=== PATIENT | female | born 1965 ===

== ENCOUNTER 2016-09-08 11:29 | Emergency (ER) | payer MEDICAID ==
[2016-09-08 11:30] VITALS: BMI 41.1
[2016-09-08 12:06] VITALS: RESP 18; TEMP 98.2; O2SAT 98
--- NOTE | 2016-09-08 12:43 | ED PDOC ---
Arrival/HPI - General Chief Complaint: Lower Extremity Problem/Injury Time Seen by Provider: 09/08/16 12:18 Historian: Patient - History of Present Illness Narrative History of Present Illness (Text): 09/08/16 12:32 51yo female with PMhx of hypertension and RA present with complaint of sharp right knee pain x 3days. Reports previous history of joint pain secondary to RA. States she took 2tabs of Ibuprofen 600mg without relieve. Pain radiates to her lower leg. Denies trauma, fall, redness, swelling, any other complaint. Past Medical History - Provider Review Nursing Documentation Reviewed: Yes - Infectious Disease Hx of Infectious Diseases: None - Tetanus Immunization Tetanus Immunization: Unknown - Cardiac Hx Hypertension: Yes - Hematological/Oncological Hx Blood Disorders: No - Musculoskeletal/Rheumatological Hx Rheumatoid Arthritis: Yes - Psychiatric Hx Anxiety: Yes Hx Substance Use: No Other/Comment: under a lot of stress - Surgical History Hx Section: Yes Hx Orthopedic Surgery: Yes (fx tibia) - Anesthesia Hx Anesthesia: Yes Family/Social History - Physician Review Nursing Documentation Reviewed: Yes Family/Social History: Unknown Family HX Smoking Status: Current Some Days Smoker Hx Alcohol Use: No Hx Substance Use: No Allergies/Home Meds Allergies/Adverse Reactions: Allergies No Known Allergies Allergy (Verified 09/08/16 12:07) Home Medications: Home Meds Medication Instructions Recorded Confirmed Lisinopril [Zestril] 10 mg PO DAILY 02/19/15 05/19/16 Aspirin [Adult Low Dose Aspirin EC] 09/08/16 Review of Systems - Physician Review All systems were reviewed & negative as marked: Yes - Review of Systems Constitutional: Normal Eyes: Normal ENT: Normal Respiratory: Normal Cardiovascular: Normal Gastrointestinal: Normal Genitourinary Female: Normal Musculoskeletal: Arthralgias (Right knee) Skin: Normal Neurological: Normal Endocrine: Normal Hemo/Lymphatic: Normal Psychiatric: Normal Physical Exam Vital Signs Reviewed: Yes Vital Signs Temp Pulse Resp BP Pulse Ox 09/08/16 12:02 98.2 F 77 18 144/84 98 Temperature: Afebrile Blood Pressure: Normal Pulse: Regular Respiratory Rate: Normal Appearance: Positive for: Well-Appearing, Non-Toxic, Comfortable Pain Distress: None Mental Status: Positive for: Alert and Oriented X 3 - Systems Exam Head: Present: Atraumatic, Normocephalic Pupils: Present: PERRL Extroacular Muscles: Present: EOMI Conjunctiva: Present: Normal Mouth: Present: Moist Mucous Membranes Neck: Present: Normal Range of Motion Respiratory/Chest: Present: Clear to Auscultation, Good Air Exchange. No: Respiratory Distress, Accessory Muscle Use Cardiovascular: Present: Regular Rate and Rhythm, Normal S1, S2. No: Murmurs Abdomen: Present: Normal Bowel Sounds. No: Tenderness, Distention, Peritoneal Signs Back: Present: Normal Inspection Upper Extremity: Present: Normal ROM, NORMAL PULSES, Tenderness (Diffuse right knee worse medially), Neurovascularly Intact, Capillary Refill < 2s. No: Cyanosis, Edema, Swelling, Erythema, Temperature Abnormalties, Deformity Lower Extremity: Present: Normal Inspection. No: Edema Neurological: Present: GCS=15, CN II-XII Intact, Speech Normal Skin: Present: Warm, Dry, Normal Color. No: Rashes Psychiatric: Present: Alert, Oriented x 3, Normal Insight, Normal Concentration Medical Decision Making ED Course and Treatment: 09/08/16 13:13 Per US tech - Doppler was negative for DVT Right knee xray - DJD. No acute finding Result was DW the pt. She was ambulatory. DC home with a rx of Tramadol. Referred to ortho. TRT ED for any new or worsening symptoms - RAD Interpretation Radiology Orders: 09/08/16 12:19 KNEE W PATELLA RIGHT 3 VIEW [RAD] Stat DUPLEX LOWER EXTRM VEIN RIGHT [US] Stat - Medication Orders Current Medication Orders: Discontinued Medications Ketorolac Tromethamine (Toradol) 60 mg IM STAT STA Stop: 09/08/16 12:21 Last Admin: 09/08/16 13:19 Dose: 60 MG IM Administration Charges Document 09/08/16 13:19 EAR (Rec: 09/08/16 13:19 EAR [id number]) Injection Site MAR Injection Site Left Deltoid Charges for Administration # of IM Administrations 1 Disposition/Present on Arrival - Present on Arrival Any Indicators Present on Arrival: No History of DVT/PE: No History of Uncontrolled Diabetes: No Urinary Catheter: No History of Decub. Ulcer: No History Surgical Site Infection Following: None - Disposition Have Diagnosis and Disposition been Completed?: Yes Diagnosis: Knee pain Disposition: HOME/ ROUTINE Disposition Time: 13:15 Patient Plan: Discharge Patient Problems: Current Active Problems Problem Status Diagnosed Knee pain Acute Condition: STABLE Discharge Instructions (ExitCare): Knee Pain (ED) Additional Instructions: Follow up with orthopedics Return to ED for any new or worsening symptoms Prescriptions: traMADol [Ultram] 50 mg PO TID #20 tab Referrals: Dre Shepard III, MD [Medical Doctor] - Follow up with primary
--- NOTE | 2016-09-08 13:03 | RAD ---
PROCEDURE: Right Knee Radiographs. HISTORY: knee pain COMPARISON: None. FINDINGS: BONES: Normal. No fracture. JOINTS: Normal. No osteoarthritis. JOINT EFFUSION: None. OTHER FINDINGS: The patella is normal IMPRESSION: Normal radiographs of the right knee.
[2016-09-08 13:41] VITALS: BP 128/79; PULSE 78
--- NOTE | 2016-09-08 15:22 | US ---
PROCEDURE: Right lower extremity venous US HISTORY: Leg pain and swelling. Evaluate for DVT. PHYSICIAN(S): Eulalio Castaneda M.D. TECHNIQUE: Duplex sonography and color-flow Doppler with graded compression were used to evaluate the deep venous system of the right lower extremity. FINDINGS: The visualized deep venous system of the right lower extremity is sonographically normal and compressible. Normal waveforms and augmentation are seen. There is no sonographic evidence for deep venous thrombosis in the visualized segments of the right lower extremity. IMPRESSION: 1. No sonographic evidence for deep venous thrombosis in the visualized segments of the right lower extremity.
== END 2016-09-08 13:42 | disposition home or self-care (01) ==
LOC: ED 11:29
DX: M25.561 Pain in right knee (principal); I10 Essential (primary) hypertension; Z72.0 Tobacco use
CPT/HCPCS: 73562; 93971; 96372; 99283; J1885

== ENCOUNTER 2017-05-13 22:26 | Emergency (ER) | payer MEDICAID ==
[2017-05-13 22:40] VITALS: BMI 36.6
[2017-05-13 22:43] VITALS: O2SAT 98
--- NOTE | 2017-05-13 23:24 | ED PDOC ---
Arrival/HPI - General Chief Complaint: Pain, Chronic Time Seen by Provider: 05/13/17 23:06 Historian: Patient - History of Present Illness Narrative History of Present Illness (Text): 05/13/17 23:20 A 51 year old female whose past medical history includes hypertension and RA, presents to the emergency department with a complaint of 2 day duration left arm pain. She states that today the pain started in the left upper arm and radiated down toward the forearm. She notes that she took Tylenol and Ibuprofen with no relief of her symptoms. The patient also notes that this evening her left eye became itchy and swollen. The patient also noted that this evening her left leg became slightly more swollen than her right leg. The patient denies fevers, chills, headache, dizziness, chest pain, shortness of breath, dyspnea on exertion, cough, abdominal pain, nausea, vomiting, diarrhea, back pain, neck pain, urinary/bowel changes, or any other complaint. PMD: Dr. Spann Time/Duration: Other (2 Days) Symptom Onset: Sudden Symptom Course: Unchanged Activities at Onset: Rest, Light Context: Home Past Medical History - Provider Review Nursing Documentation Reviewed: Yes - Infectious Disease Hx of Infectious Diseases: None - Tetanus Immunization Tetanus Immunization: Unknown - Cardiac Hx Hypertension: Yes - Hematological/Oncological Hx Blood Disorders: No - Musculoskeletal/Rheumatological Hx Rheumatoid Arthritis: Yes - Psychiatric Hx Anxiety: Yes Hx Substance Use: No Other/Comment: under a lot of stress - Surgical History Hx Section: Yes Hx Orthopedic Surgery: Yes (fx tibia) - Anesthesia Hx Anesthesia: Yes Family/Social History - Physician Review Nursing Documentation Reviewed: Yes Family/Social History: Other (Non- contributory.) Smoking Status: Current Some Days Smoker Hx Alcohol Use: No Hx Substance Use: No Allergies/Home Meds Allergies/Adverse Reactions: Allergies aspirin Allergy (Verified 05/13/17 23:21) Home Medications: Home Meds Medication Instructions Recorded Confirmed Lisinopril [Zestril] 10 mg PO DAILY 02/19/15 05/19/16 Aspirin [Adult Low Dose Aspirin EC] 09/08/16 Review of Systems - Review of Systems Constitutional: absent: Fevers Eyes: Other (left eye itchiness and swelling.) Respiratory: absent: SOB Cardiovascular: absent: Chest Pain Gastrointestinal: absent: Abdominal Pain, Diarrhea, Nausea, Vomiting Musculoskeletal: Other (Left arm pain and left leg swelling.) Neurological: absent: Headache Physical Exam Vital Signs Reviewed: Yes Vital Signs Temp Pulse Resp BP Pulse Ox 05/14/17 01:15 97.9 F 62 17 135/82 98 05/13/17 22:42 97.8 F 65 20 151/84 H 98 Appearance: Positive for: Well-Appearing, Non-Toxic, Comfortable Pain Distress: None Mental Status: Positive for: Alert and Oriented X 3 - Systems Exam Extroacular Muscles: Present: EOMI Conjunctiva: Present: Other (Mild edema on the left eyelid.) Mouth: Present: Moist Mucous Membranes Respiratory/Chest: Present: Clear to Auscultation, Good Air Exchange, Accessory Muscle Use. No: Respiratory Distress Cardiovascular: Present: Regular Rate and Rhythm Abdomen: No: Tenderness, Distention Upper Extremity: Present: NORMAL PULSES, Tenderness (Left forearm tender anteriorly. Muscles soft. ), Other (Left forearm pain with flexion of the elbow. ). No: Swelling, Erythema Lower Extremity: Present: NORMAL PULSES. No: Edema Neurological: Present: GCS=15, Motor Func Grossly Intact, Normal Sensory Function, Other (No focal deficits. ) Skin: Present: Warm, Dry Psychiatric: Present: Alert, Oriented x 3 Medical Decision Making ED Course and Treatment: 05/13/17 23:28 Impression: A 51 year old female presents to the emergency department with 2 day duration left arm pain and left eye swelling/itching, left leg swelling that began this evening. Plan: -- EKG -- Left Lower Extremity/Upper Extremity Ultrasound -- Labs -- Toradol -- Reassess and disposition Prior Visits: Notes and results from previous visits were reviewed. Patient was last seen in the emergency department on 09/08/16. The patient was seen in the emergency department with a complaint of 3 day duration right knee pain. The patient was discharged home. Progress Notes: EKG: Ordered, reviewed, and independently interpreted the EKG. Rate : 63 BPM Rhythm : NSR Interpretation : Normal EKG. 05/14/17 00:46: Case was discussed with perinatal technician. The patient is negative for DVT. - Lab Interpretations Lab Results: 05/13/17 23:50 05/13/17 23:50 Lab Results 05/13/17 23:50: Sodium 140, Potassium 4.1, Chloride 104, Carbon Dioxide 27, Anion Gap 13, BUN 14, Creatinine 0.9, Est GFR ( Amer) > 60, Est GFR (Non- Af Amer) > 60, Random Glucose 117 H, Calcium 9.8, Total Bilirubin 0.4, AST 30, ALT 33, Alkaline Phosphatase 29 L, Troponin I < 0.01, Total Protein 7.6, Albumin 4.0, Globulin 3.6, Albumin/Globulin Ratio 1.1 05/13/17 23:50: PT 11.5, INR 1.05, APTT 28.8 05/13/17 23:50: WBC 7.5, RBC 4.81, Hgb 13.1, Hct 40.0, MCV 83.2, MCH 27.2, MCHC 32.8, RDW 15.5 H, Plt Count 263, MPV 11.8 H, Gran % 55.3, Lymph % (Auto) 34.5, Garvin % (Auto) 7.8 H, Eos % (Auto) 2.0, Baso % (Auto) 0.4, Gran # 4.17, Lymph # 2.6, Garvin # 0.6, Eos # 0.2, Baso # 0.03 I have reviewed the lab results: Yes - RAD Interpretation Radiology Orders: 05/13/17 23:21 DUPLEX LOWER EXTRM VEIN LEFT [US] Stat DUPLEX UPPER EXTRM VEIN LEFT [US] Stat - EKG Interpretation Interpreted by ED Physician: Yes Type: 12 lead EKG - Medication Orders Current Medication Orders: Discontinued Medications Ketorolac Tromethamine (Toradol) 10 mg IVP STAT STA Stop: 05/13/17 23:23 Last Admin: 05/14/17 00:53 Dose: 10 mg MAR Pain Assessment Document 05/14/17 00:53 IT (Rec: 05/14/17 00:53 IT [id number]) Pain Reassessment Is this a pain reassessment? No Sleep Is patient sleeping during reassessment? No Presence of Pain Presence of Pain Yes IVP Administration Document 05/14/17 00:53 IT (Rec: 05/14/17 00:53 IT [id number]) Charges for Administration # of IVP Administrations 1 - Scribe Statement The provider has reviewed the documentation as recorded by the Scribe Jacki King Provider Scribe Attestation: All medical record entries made by the Scribe were at my direction and personally dictated by me. I have reviewed the chart and agree that the record accurately reflects my personal performance of the history, physical exam, medical decision making, and the department course for this patient. I have also personally directed, reviewed, and agree with the discharge instructions and disposition. Disposition/Present on Arrival - Present on Arrival Any Indicators Present on Arrival: No History of DVT/PE: No History of Uncontrolled Diabetes: No Urinary Catheter: No History of Decub. Ulcer: No History Surgical Site Infection Following: None - Disposition Have Diagnosis and Disposition been Completed?: Yes Diagnosis: Arm pain, Stye Disposition: HOME/ ROUTINE Disposition Time: 00:47 Condition: GOOD Discharge Instructions (ExitCare): [place] (ED) Additional Instructions: Please follow up with your doctor next week. Return to the ER for any worsening symptoms or for any other concerns. Prescriptions: Naproxen [Naprosyn] 500 mg PO Q12H PRN #10 tablet PRN Reason: Pain, Moderate (4-7) Referrals: Chacho Spann Jr., MD [Primary Care Provider] - Follow up with primary Forms: [employer] (E[place]ian)
[2017-05-13 23:58] LABS: BASO # 0.03 K/mm3 (0.0-2.0); BASO % 0.4 % (0.0-3.0); EOS # 0.2 (0.0-0.7); GRAN # 4.17 (1.4-6.5); GRAN % 55.3 % (50.0-68.0); LYMPH # 2.6 (1.2-3.4); LYMPH % 34.5 % (22.0-35.0); MEAN CELL VOLUME 83.2 fl (80.0-105.0); MEAN CORPUSCULAR HEMOGLOBIN 27.2 pg (25.0-35.0); MEAN CORPUSCULAR HGB CONC 32.8 g/dl (31.0-37.0); MEAN PLATELET VOLUME 11.8 fl (7.0-11.0); MONO # 0.6 (0.1-0.6); MONO % 7.8 % (1.0-6.0); RED CELL DISTRIBUTION WIDTH 15.5 % (11.5-14.5); WHITE BLOOD COUNT 7.5 10^3/ul (4.5-11.0)
[2017-05-14 00:07] LABS: ALB/GLOB RATIO 1.1 (1.1-1.8); CALCIUM 9.8 mg/dL (8.4-10.5); GFR AFRICAN-AMERICAN > 60; GLUCOSE,RANDOM 117 mg/dL (70-110); TOTAL PROTEIN 7.6 g/dL (5.8-8.3)
[2017-05-14 00:08] LABS: BILIRUBIN,TOTAL 0.4 mg/dL (0.2-1.3)
[2017-05-14 00:16] LABS: ALKALINE PHOSPHATASE 29 U/L (38-126); ALT/SGPT 33 U/L (7-56); AST/SGOT 30 U/L (14-36); BLOOD UREA NITROGEN 14 mg/dL (7-21); CARBON DIOXIDE 27 mmol/L (21-33); CHLORIDE 104 mmol/L (98-107); INR 1.05 (0.93-1.08); PARTIAL THROMBOPLASTIN TIME 28.8 Seconds (25.1-36.5); POTASSIUM 4.1 mmol/L (3.6-5.0); SODIUM 140 mmol/L (132-148)
[2017-05-14 00:19] LABS: TROPONIN I < 0.01 ng/mL
[2017-05-14 01:18] VITALS: BP 135/82; PULSE 62; RESP 17; TEMP 97.9
--- NOTE | 2017-05-14 15:11 | CARD ---
APPROVED REPORT EKG Measurement Heart [id number] <Conclusion> Normal sinus rhythm Normal ECG
--- NOTE | 2017-05-16 10:26 | US ---
PROCEDURE: Left upper extremity venous ultrasound HISTORY: Arm pain and swelling. Evaluate for deep venous thrombosis. PHYSICIAN(S): Eulalio Castaneda MD. FINDINGS: The visualized leftinternal jugular vein is sonographically normal and compressible. No evidence of obstruction or thrombus is seen. The visualized segments of the left subclavian vein are patent with normal waveforms. No sonographic evidence of obstruction or thrombosis is seen. The visualized deep venous system of the proximal leftupper extremity is sonographically normal and compressible. IMPRESSION: 1. No sonographic evidence for deep venous thrombosis in the visualized segments of the left upper extremity.
--- NOTE | 2017-05-16 10:27 | US ---
PROCEDURE: Left lower extremity venous US HISTORY: Leg pain and swelling. Evaluate for DVT. PHYSICIAN(S): Eulalio Castaneda MD. TECHNIQUE: Duplex sonography and color-flow Doppler with graded compression were used to evaluate the deep venous system of the left lower extremity. FINDINGS: The visualized deep venous system of the left lower extremity is sonographically normal and compressible. Normal wave forms and augmentation are seen. There is no sonographic evidence for deep venous thrombosis in the visualized segments of the left lower extremity. IMPRESSION: 1. No sonographic evidence for deep venous thrombosis in the visualized segments of the left lower extremity.
== END 2017-05-14 01:19 | disposition home or self-care (01) ==
LOC: ED 22:26
DX: M79.602 Pain in left arm (principal); H00.016 Hordeolum externum left eye, unspecified eyelid; I10 Essential (primary) hypertension; M06.9 Rheumatoid arthritis, unspecified; F17.210 Nicotine dependence, cigarettes, uncomplicated
CPT/HCPCS: 80053; 84484; 85025; 85610; 85730; 93005; 93971; 96374; 99283; J1885